=== PATIENT | female | born 1960 | race Caucasian/White ===

== ENCOUNTER 2016-07-04 17:49 | Emergency (ER) | payer MEDICARE ==
[~2016-07-04 17:49] MED LIST: CALCIUM 1,2001 EACH PO; CIPRO PO; CLARINEX5 MG PO; CLARITIN10 M2 PO; CLEOCIN HCL300 M1 PO; COMBIVENT INH14.7 GM INH; CYMBALTA PO; DAILY VALUE1 EACH PO; DIAZEPAM PO; FENTANYL1 EAC3 TOP; FLEXERIL10 MG PO; FLOVENT7.9 GM; FLOVENT7.9 GM INH; GABITRIL4 MG PO; INDERAL LA PO; KLONOPIN2 MG PO; LIDODERM30 EA TOP; LIPITOR20 MG PO; LORTAB 10-5001 EACH PO; LYRICA PO; MAGNESIUM200 MG PO; MEDROL DOSEPAK4 MG PO; MEDROL4 MG/DOSE- PO; MUCINEX DM1 TAB.SR . PO; MYCELEX10 MG MT; OMEGA 3-6-9 11200 MG PO; ORUDIS75 M1 PO; PERCOCET 10/3251 TAB PO; PREMARIN VAG CR45 GM MC; REQUIP1 MG PO; RHINOCORT AQUA8.6 GM; RISPERIDONE PO; SAVELLA50 MG; SINGULAIR PO; SOY ISOFLAVONE PO; SYMBICORT80 INH; VALIUM10 MG PO; VICODIN 5/1 TAB 5/50 PO; VITAMIN D1000 UNI1 PO; VOLTAREN100 GM TP; ZANAFLEX PO; [UNRECOGNIZED DRUG - OTHER]
[2016-07-04 18:48] LABS: URINE SOURCE CLEAN CATCH
[2016-07-04 18:52] LABS: URINE APPEARANCE CLEAR; URINE BILIRUBIN NEG (NEG); URINE BLOOD NEG (NEG); URINE COLOR YELLOW; URINE GLUCOSE NEG (NEG); URINE KETONE NEG (NEG); URINE LEUKOCYTE ESTERASE 1+ (NEG); URINE NITRATE NEG (NEG); URINE PROTEIN NEG (NEG); URINE SPECIFIC GRAVITY 1.007 (1.003-1.035); URINE UROBILINOGEN 0.2 MG/DL (NEG)
[2016-07-04 18:54] LABS: URBCS1 AUWI 0-2 /[HPF] (0-2); URINE BACTERIA AUWI NEG (NEGATIVE); URINE SQUAMOUS EPITHELIAL CELL NONE SEEN /[HPF]
[2016-07-04 19:03] LABS: CULTURE INDICATED? NO
[2016-07-04 19:07] LABS: AMPHETAMINE NEG (NEG); BARBITURATES NEG (NEG); BENZODIAZEPINES POS (NEG); COCAINE NEG (NEG); MARIJUANA NEG (NEG); OPIATES NEG (NEG); TRICYCLIC ANTIDEPRESSANTS NEG (NEG); U METHADONE NEG (NEG)
== END 2016-07-04 18:42 | disposition home or self-care (01) ==
LOC: CFTX 17:49
PROVIDERS: Emergency Medicine
DX: S93.402A Sprain of unspecified ligament of left ankle, initial encounter (principal); F41.9 Anxiety disorder, unspecified; J44.9 Chronic obstructive pulmonary disease, unspecified; F17.210 Nicotine dependence, cigarettes, uncomplicated; Z98.51 Tubal ligation status; Z88.0 Allergy status to penicillin; Z88.2 Allergy status to sulfonamides; Z88.5 Allergy status to narcotic agent; X58.XXXA Exposure to other specified factors, initial encounter; Y92.89 Other specified places as the place of occurrence of the external cause
CPT/HCPCS: 29540; 80307; 81003; 87045; 87177; 87209; 87427; 87899; 99283